=== PATIENT | male | born 1945 | race Hispanic/Latino ===

== ENCOUNTER 2016-05-24 07:39 | Day surgery (SDC) | payer OTHER ==
[~2016-05-24] VITALS: Ht 177.8 cm; Wt 101.6 kg
[~2016-05-24 07:39] MED LIST: ACET-171 PO; ASPI-973 PO; LIP40 PO; METO25TA6 PO; PANT40TA2 PO; PANT40TA3 PO; RANI150C4 PO
[2016-05-24] MEDS ORDERED: fentaNYL-PF 50 mCg/mL 2 mL Inj IVPUSH PRN (07:48)
[2016-05-24 08:32] VITALS: BP 157/87; PULSE 66; RESP 17; O2SAT 96
[2016-05-24] MEDS ORDERED: 0.9% Sodium Chloride 1,000 ML ONE (08:54)
[2016-05-24 09:33] VITALS: BP 124/65; PULSE 66; RESP 16; O2SAT 90
[2016-05-24 09:43] VITALS: BP 116/70; PULSE 67; RESP 16; O2SAT 95
[2016-05-24 09:53] VITALS: BP 125/72; PULSE 66; RESP 16; O2SAT 96
[2016-05-24 10:02] VITALS: BP 126/74; PULSE 63; RESP 16; O2SAT 94
--- NOTE | 2016-05-24 13:22 | ENDO ---
[address] [address] ENDOSCOPY PROCEDURE PATIENT: MO RETANA : 1945 MR#: [id number] ADMIT: 05/24/2016 JOB ID: [id number] OPERATION: Esophagogastroduodenoscopy with biopsy and colonoscopy. PREOPERATIVE DIAGNOSIS(ES): 1. Gastroesophageal reflux disease. 2. Colorectal cancer screening. POSTOPERATIVE DIAGNOSIS(ES): 1. Normal colonoscopy. 2. Mild nonerosive gastritis. ANESTHESIA: Fentanyl 100 mcg, Versed 7 mg IV administered. COMPLICATIONS: None. BLOOD LOSS: Minimal. DESCRIPTION OF PROCEDURE: After the risks and benefits were explained to the patient, informed consent was obtained. After anesthesia was administered, the upper endoscope was inserted in the mouth, intubating through the esophagus, stomach, and second portion of the duodenum and the mucosa carefully examined. After the procedure was done, the scope was withdrawn and the procedure terminated. A colonoscope was inserted from the rectum to the cecum and the mucosa carefully examined. Prep of the patient was excellent. After the procedure was done, the scope was withdrawn and the procedure terminated. FINDINGS: Upon inspection of the esophagus, the esophagus was normal, without masses, ulcers, or lesions. Z-line located 40 cm from incisors. Upon entering the stomach, in the stomach there was mild nonerosive gastritis that was seen. No masses, ulcers, or lesions were seen. Retroflexion was normal. Duodenal bulb, first and second portion were normal. Biopsies were taken in the antrum, body, and distal esophagus. Upon inspection of the anus, no masses, hemorrhoids, ulcers, or fissures that were seen. Throughout the entire examination there were no polyps, masses, or lesions. Retroflexion was normal. IMPRESSION: 1. Normal colonoscopy. 2. Mild nonerosive gastritis. RECOMMENDATION: Await pathology results. Follow up in GI Clinic as needed. Repeat colonoscopy in 10 years for colorectal cancer screening.
[2016-05-25] MEDS ORDERED: 0.9% Sodium Chloride 1,000 ML IV SCH (06:00)
[2016-05-25] MEDS ORDERED: Sodium Chloride LOK Flush 10 mL Syringe IV PRN (06:00)
--- NOTE | 2016-05-27 14:22 | PATH ---
SURGICAL PATHOLOGY Attending Physician:Gaston Rollins MD CASE STATUS: Signed Out PATIENT NAME: MO RETANA PID: [id number] : 1945 DATE COLLECTED:05/24/2016 21:28 SPECIMEN: 1: Esophagus, Biopsy 2: Gastric, Biopsy 3: Stomach, Antrum, Biopsy CLINICAL HISTORY: GERD, SCREENING, GASTRITIS 1). DISTAL ESOPHAGUS BIOPSY 2). GASTRIC BIOPSY 3). ANTRAL BIOPSY FINAL DIAGNOSIS: 1.DISTAL ESOPHAGUS BIOPSY: FRAGMENTS OF SQUAMOUS MUCOSA WITH NONSPECIFIC REACTIVE EPITHELIAL CHANGES. NO GASTRIC-TYPE EPITHELIUM IDENTIFIED. Negative for dysplasia and malignancy. Eosinophils are not increased. 2.GASTRIC BIOPSY: DIFFUSE MODERATE TO SEVERE CHRONIC GASTRITIS, FOCALLY ACTIVE, INVOLVING FUNDIC MUCOSA. Immunohistochemistry for Helicobacter pending, to be reported by addendum. Negative for intestinal metaplasia. Negative for dysplasia and malignancy. 3.GASTRIC ANTRAL BIOPSY: DIFFUSE SEVERE CHRONIC GASTRITIS, FOCALLY ACTIVE, INVOLVING ANTRAL MUCOSA. Immunohistochemistry for Helicobacter pending, to be reported by addendum. Negative for intestinal metaplasia. Negative for dysplasia and malignancy. ICD10 code K29.70 GROSS DESCRIPTION: Received are three formalin-filled containers, each labeled with the patient' s name. 1. Received in formalin, labeled with the patient' s name and "distal esoph", are two fragments of briones, soft tissue ranging in size from 0.1 x 0.1 x 0.1 cm to 0.2 x 0.1 x 0.1 cm. All fragments are totally submitted in cassette 1A. 2. Received in formalin, labeled with the patient' s name and "gastric biopsy", are two fragments of briones, soft tissue ranging in size from 0.1 x 0.1 x 0.1 cm to 0.2 x 0.1 x 0.1 cm. All fragments are totally submitted in cassette 2A. 3. Received in formalin, labeled with the patient' s name and "antral biopsy", is one fragment of briones, soft tissue measuring 0.4 x 0.2 x 0.1 cm. The fragment is totally submitted in cassette 3A. (RL:[id number]) MICRO DESCRIPTION: See diagnosis. 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 3.ANTRAL BIOPSY: NEGATIVE FOR HELICOBACTER BY IMMUNOHISTOCHEMISTRY (SOME STAINING OF AMORPHOUS MATERIAL PRESENT). This test was developed and its performance characteristics determined by [facility]. It has not been cleared or approved by the [place]. Food and Drug Administration. The FDA has determined that such clearance or approval is not necessary. This test is used for clinical purposes. It should not be regarded as investigational or for research. Electronically Signed Out Reji Lawson MD Electronically Signed Out Reji Lawson MD [facility] [address], [place] [address] Technical component performed at [facility], [address], [place], [address]
== END 2016-05-24 23:59 | disposition home or self-care (01) ==
LOC: END 07:39
PROVIDERS: ATTEND Internal Medicine Gastroenterology
DX: Z12.11 Encounter for screening for malignant neoplasm of colon (principal); K29.50 Unspecified chronic gastritis without bleeding; K21.9 Gastro-esophageal reflux disease without esophagitis; E78.5 Hyperlipidemia, unspecified; I10 Essential (primary) hypertension; N40.0 Benign prostatic hyperplasia without lower urinary tract symptoms; E66.9 Obesity, unspecified; Z68.36 Body mass index [BMI] 36.0-36.9, adult; Z79.82 Long term (current) use of aspirin
CPT/HCPCS: 43239; 99153; G0121; G0500; J2250; J3010; J7030